=== PATIENT | male | born 1955 | race Caucasian/White ===

== ENCOUNTER 2017-02-28 00:14 | Day surgery (SDC) | payer OTHER ==
[~2017-02-28 00:14] MED LIST: APIX5TAB PO; METO50TA3 PO; OMEP20TA24 PO; PRED1DRO OD
[2017-02-28] MEDS ORDERED: Lactated Ringer's 1,000 ML IV SCH (05:00)
[2017-02-28] MEDS ORDERED: Benzoc-Butamben-Tetraca Spray 20 Gm Spray TOPICAL ONE (06:00)
[2017-02-28] MEDS ORDERED: Vancomycin Inj 1,000 MG in IV Premix 1 EACH IV ONE (07:15)
[2017-02-28] MEDS ORDERED: 0.9% Sodium Chloride 1,000 ML IV SCH (07:16)
== END 2017-02-28 23:59 | disposition home or self-care (01) ==
LOC: SOUO 00:14
PROVIDERS: ATTEND Internal Medicine Cardiovascular Disease
DX: I48.0 Paroxysmal atrial fibrillation (principal)

== ENCOUNTER 2017-05-23 01:31 | Day surgery (SDC) | payer OTHER ==
[~2017-05-23] VITALS: Ht 177.8 cm; Wt 131.4 kg
[2017-05-23] VITALS (16 sets, daily range): BP systolic 109–133; BP diastolic 67–84; PULSE 56–77; RESP 12–26; O2SAT 94–97
[~2017-05-23 01:31] MED LIST changes: +Lactated Ringer's 1,000 ML IV SCH; +PRED1DRO BOTH_EYES; -PRED1DRO OD
[2017-05-23] MEDS ORDERED: fentaNYL-PF 50 mCg/mL 2 mL Inj ONE (01:32)
[2017-05-23] MEDS ORDERED: Lidocaine 2% 5 mL Topical Jelly ONE (01:32)
[2017-05-23] MEDS ORDERED: EPHEDrine/NS 5 mg/mL 5 mL Syringe ONE (01:32)
[2017-05-23] MEDS ORDERED: Rocuronium 10 mg/mL 5 mL Inj ONE (01:32)
[2017-05-23] MEDS ORDERED: Protamine Sulfate 10 mg/mL 5 mL Inj ONE ×3 (01:32→12:38)
[2017-05-23] MEDS ORDERED: Propofol 10,000 mCg/mL 20 mL Inj ONE (01:32)
[2017-05-23] MEDS ORDERED: Lactated Ringer's 1,000 ML IV SCH ×2 (05:00→08:00)
[2017-05-23] MEDS ORDERED: Benzoc-Butamben-Tetraca Spray 20 Gm Spray TOPICAL PRN (06:15)
[2017-05-23] MEDS ORDERED: Vancomycin 1,000 mg/200 mL NS IV SCH (06:15)
[2017-05-23] MEDS ORDERED: Heparin 1,000 Unit/mL 10 mL Inj ONE ×3 (06:42→11:12)
[2017-05-23] MEDS ORDERED: Heparin 25,000 Unit/500 mL 0.45% NS Premix IV ONE (06:42)
[2017-05-23] MEDS ORDERED: RIVA20TA PO (06:55)
[2017-05-23 06:58] LABS: BASOPHILS % (AUTO) 0.2 % (0-3); EOSINOPHILS % (AUTO) 6.1 % (0-5); Mean Corpuscular Hemoglobin 32.7 pg (27.0-35.0); Mean Corpuscular Volume 96.4 fL (81-100); NEUTROPHILS % (AUTO) 52.9 % (40-74); Platelet Count 232 bil/L (150-400)
--- NOTE | 2017-05-23 07:14 | PCM.HPANE ---
Patient Data Surgeon Admitting Provider: Attending Provider:Blayne Murcia MD Primary Care Physician:Estiven Worthington MD Other Provider:Naila Porteringham Anesthesia Reason for Visit Paroxysmal Atrial Fibrillation Ht/WT & BMI Height (Feet): 5 Height (Inches): 10.00 Weight (Kilograms): 136.900 Body Mass Index 43.21 Allergies Coded Allergies: No Known Drug Allergies (Verified Allergy, Unknown, 09/08/15) Past Anesthesia History Anesthesia History: Denies:: Anesthesia Reactions, Fam Anesthesia Reaction, Fam Malignant Hypertherm, Malignant Hyperthermia Diabetes History Hx Diabetes?: No MRSA MRSA: No Medications Blood Thinner: Aspirin Reported Medications Rivaroxaban (Xarelto)20 Mg [id number] Mg PO DAILY 05/23/17 Prednisolone Acetate (Pred Forte)1 Ml Drops.susp1 Gtt BOTH_EYES weekly/tuesdays02/27/17 Metoprolol Tartrate 50 Mg Vnzuug16 Mg PO BID 30 Days Ref 0 02/27/17 Discontinued Reported Medications Omeprazole Magnesium (Prilosec Otc)20 Mg Tablet.dr20 Mg PO DAILY #1 PKG Ref 0 02/27/17 Apixaban (Eliquis)5 Mg Tablet5 Mg PO BID 02/27/17 History History of ENT Problems?: Yes HEENT History: Positive for:: Cataracts (S/P EXTRACTION & FUCH'S DYSTROPHY CORRECTION X2) Denture Type: None Teeth Condition: Within Normal Limits Hx of Heart Problems?: Yes Cardiovascular History: Positive for:: Hypertension Irregular Heartbeat (atrial fibrillation) Denies:: Cardiac Surgery Hx of Respiratory Problem?: No Respiratory History: Denies:: Use of C-PAP Machine Hx Neurologic Problems?: No Neurological History: Denies:: CVA Hx of GI Problems?: Yes Hx of Problems?: No Male Hx: Denies:: Prostate Problems Scrotal Mass Testicular Surgery (HYPOGONADISM) Skin History: Denies:: History Skin Disorders? Pressure Ulcers Hx Musculoskeletal Problems?: Yes Musculoskeletal History: Positive for:: Back Injury (2 back surgeries, electric nerve stimulator implant) Musculoskeletal Trauma (S/P RT SHOULDER RPR) Hx of Psycho/Social Problems?: Yes Psycho Social History: Positive for:: Hx Depression Denies:: Anxiety Hx Surgeries?: Yes (back, eye, shoulder) Hx Any Other Health Problems?: Yes Other History: Denies:: Cancer Endocrine Disease Hospitalization Thyroid Disease History Blood Transfusions: Positive for:: Accept Blood Products? Denies:: Blood Transfusions Hx Diabetes: No Hx Alcohol Use: Yes (1-2 drinks weekly)Hx Substance Use: No Smoking Status: Never Smoker Have You Smoked inLast 12 mo: Yes Stop/Bang Risk Assessment Category Category 1A: Patient has history of documented sleep apnea, and HAS NOT received any narcotic, sedative or anesthesia administration during this stay. Category 1B: Patient has history of documented sleep apnea, and HAS received any narcotic , sedative or anesthesia administration during this stay Category 2: Patient has SUSPECTED Obstructive Sleep Apnea, and HAS received any narcotic , sedative or anesthesia administration during this stay. Category 3: Patient has SUSPECTED Obstructive Sleep Apnea and HAS NOT received narcotic, sedative or anesthesia administration during this stay. Category 4: Outpatient in Procedural Areas with known sleep apnea or who screen positive for High Risk via the STOP/BANG questionnaire. Exam Exam Vital Signs Vital Signs Date Time Temp Pulse Resp B/P Pulse Ox O2 Delivery O2 Flow Rate FiO2 05/23/17 06:53 56 18 128/74 05/23/17 06:41 36.6 56 18 128/74 95 Room Air General Appearance: Alert, Oriented X3, Cooperative, No Acute Distress HEENT/AIRWAY: MP 2, Neck Movement (THICK, 50% expected ROM, SINHA), Mouth Opening (wnl) Lungs: Clear to Auscultation, Normal Air Movement Meds/Labs/Diagnostics Labs Test 05/23/17 06:30 White Blood Count 4.9th/mm3 (3.8-10.1) Red Blood Count 4.40mil/mm3 (4.40-5.80) Hemoglobin 14.4g/dL (13.8-17.2) Hematocrit 42.4% (41.0-50.0) Mean Corpuscular Volume 96.4fL (81-100) Mean Corpuscular Hemoglobin 32.7pg (27.0-35.0) Mean Corpuscular Hemoglobin Concent 34.0% (32.0-37.0) Red Cell Distribution Width 11.8% (12.3-15.4) Platelet Count 232bil/L (150-400) Neutrophils (%) (Auto) 52.9% (40-74) Lymphocytes (%) (Auto) 31.6% (14-46) Monocytes (%) (Auto) 9.0% (4-12) Eosinophils (%) (Auto) 6.1% (0-5) Basophils (%) (Auto) 0.2% (0-3) Plan Impression Patient chart reviewed, patient interviewed and anesthestic plan with risks, benefits, and alternatives discussed, and informed consent obtained. ASA Physical Status: ASA3 Severe Disease Anesthetic Support Modalities: [place] Scope Anesthetic Plan: GA Bene/Risks/Altern/Consents: Yes HP Complete Prior to Induction: Yes Tonny Enriquez MD May 23, 2017 07:14
[2017-05-23] MEDS ORDERED: Heparin 1,000 Units/500 mL NS Premix IV ONE (07:52)
[2017-05-23] MEDS ORDERED: Lactated Ringer's 500 ML IV PRN (08:00)
[2017-05-23] MEDS ORDERED: Dexamethasone 4 mg/mL Inj IVPUSH PRN (08:00)
[2017-05-23] MEDS ORDERED: EPHEDrine Sulfate 50 mg/mL Inj IVPUSH PRN (08:00)
[2017-05-23] MEDS ORDERED: Phenylephrine 10,000 mCg/mL Inj IVPUSH PRN (08:00)
[2017-05-23] MEDS ORDERED: Atropine 0.4 mg/mL Inj IVPUSH PRN (08:00)
[2017-05-23] MEDS ORDERED: fentaNYL-PF 50 mCg/mL 2 mL Inj IVPUSH PRN (08:00)
[2017-05-23] MEDS ORDERED: Labetalol 5 mg/mL 4 mL Inj IV PRN (08:00)
[2017-05-23] MEDS ORDERED: hydrALAZINE 20 mg/mL Inj IVPUSH PRN (08:00)
[2017-05-23] MEDS ORDERED: Ondansetron 2 mg/mL 2 mL Inj IVPUSH PRN (08:00)
[2017-05-23] MEDS ORDERED: HYDROmorphone 1 mg/mL Inj IVPUSH PRN (08:00)
[2017-05-23] MEDS ORDERED: Heparin 10,000 Unit/1,000 mL NS Premix IV ONE (09:08)
--- NOTE | 2017-05-23 13:13 | PCM.ANEP1 ---
Post Anesthesia PACU Phase 1 Assessment Vital Signs Vital Signs Date Time Temp Pulse Resp B/P Pulse Ox O2 Delivery O2 Flow Rate FiO2 05/23/17 06:53 56 18 128/74 05/23/17 06:41 36.6 56 18 128/74 95 Room Air Anesthetic Administered: GA Level of Alertness: Awake, talking CHINCHILLA's with Equal Strength: Yes Pain: No Nausea or Vomiting: No CV Function & Hydration Stable: Yes Airway Device: Oxygen Delivery: Room Air Lungs: Normal Air Movement PACU Phase 2 Assessment Complications: No Follow up Care: No Patient Instructions Provided: N/A Tonny Enriquez MD May 23, 2017 13:13
--- NOTE | 2017-05-23 13:30 | NUR ---
Right radial arterial line removed without incidence.Pressure held x 7 minutes.Bandaid applied.
--- NOTE | 2017-05-23 14:03 | PROCED ---
[address] [address] PROCEDURE NOTE PATIENT: CHRISTO BILL : 1955 MR#: [id number] ADMIT: 05/23/2017 JOB ID: [id number] DATE OF SERVICE: 05/23/2017 PREOPERATIVE DIAGNOSIS(ES): Paroxysmal drug-refractory atrial fibrillation. POSTOPERATIVE DIAGNOSIS(ES): Paroxysmal drug-refractory atrial fibrillation. PROCEDURES PERFORMED: 1. Comprehensive electrophysiology study with left atrial pacing and recording. 2. Three-dimensional electroanatomical mapping using the CARTO 3 system. 3. Intracardiac echocardiography. 4. Transseptal puncture x2. 5. Atrial fibrillation ablation with pulmonary vein isolation. 6. Barium esophagram. 7. Fluoroscopy. SURGEON: Blayne Murcia MD, electrophysiology attending. ASSISTANTS: Dawood Patel PA-C, Bing Inman. ANESTHESIA: General endotracheal anesthesia was undertaken for this case. INDICATION: The patient is a pleasant 61-year-old man with preserved LV function and highly symptomatic recurrent drug-refractory atrial fibrillation. After discussion of risks and benefits of catheter-based mapping and ablation, he opted to proceed. PROCEDURAL DESCRIPTION: Following informed signed consent, the patient was taken to the EP laboratory in a fasting, nonsedated state, where he was prepped and draped in the usual sterile fashion. He underwent a preprocedural transesophageal echocardiogram by Dr. Hillman confirming lack of intracardiac thrombus. Please see separate dictated report for the details of that procedure. The bilateral groins were infiltrated with 1% lidocaine. Then, using modified Seldinger technique, two 8-Wolof sheaths were inserted into the right femoral vein, and a 7 and a 10.5-Wolof sheaths were inserted into the left femoral vein. Under fluoroscopic guidance, a deflectable decapolar catheter was advanced to the coronary sinus with the most proximal bipoles at the os of the sinus. An intracardiac echocardiography probe was advanced to the RV outflow tract and used to visualize the pericardial space. No effusion was noted. The ICE probe has pulled back into the right atrium and used to visualize the interatrial septum in anticipation of transseptal puncture. Two transseptal punctures were performed in an identical fashion. Each of the short 8-Wolof sheaths were exchanged over a long wire for a Zarco sheath dilator and Cora Brockenbrough needle. The entire system was used to engage the interatrial septum. Then, under fluoroscopic, ICE and pressure guidance, the septum was traversed twice to deploy the two Zarco sheaths into the left atrium. The patient was heparinized for a goal ACT of 350 to 400 seconds for the entire time we were in the left atrium following the first and preceding with second transseptal puncture. A resurvey of the pericardial space showed no evidence of effusion. Through the two Zarco sheaths, an F curve SmartTouch irrigated ablation catheter was passed, as was a 20-pole PentaRay catheter, and a three-dimensional electroanatomical mapping of the left atrium and pulmonary veins was created using the CARTO 3 system. The left pulmonary veins had a common ostium with late bifurcation. There were three right-sided pulmonary veins with a right middle that was quite small and encompassed with the right lower pulmonary vein. A barium esophagram was performed and was closest to the posterior aspect of the left common pulmonary vein. Ablation lesions were then placed around the ostia of the left common pulmonary vein, right upper and right lower pulmonary veins in that order. Entrance and exit block was confirmed. Low-wattage, short-duration casillas were placed along the posterior aspect of the left common pulmonary vein while monitoring both the position by barium esophagram and the temperature within esophagus. After entrance and exit block was confirmed in the pulmonary veins, we disengaged from the left atrium, turned off the heparin and reversed the patient's heparin with protamine. A re-survey of the pericardial space showed no evidence of effusion. Once the heparin was reversed, the catheter sheaths were removed. Manual pressure was held for hemostasis. During the course of this study we did complete a comprehensive electrophysiology study with right atrial pacing recording, right ventricular pacing recording, His bundle recording and left atrial pacing recording. The patient was transferred to the [facility] for monitoring and bedrest. COMPLICATIONS: None. ESTIMATED BLOOD LOSS: 20 cc. FINDINGS: 1. Baseline rhythm is sinus with an RR interval of 962 msec, AK 149 msec, QRS 90 msec, QT 415 msec. 2. Intracardiac intervals: AH interval 65 msec, HV 52 msec. 3. Retrograde conduction: Concentric atrial activation. VA Wenckebach is seen at 520 msec. 4. Atrial fibrillation ablation with pulmonary vein isolation as described above with entrance and exit block. IMPRESSION: Successful pulmonary vein isolation procedure for paroxysmal drug-refractory atrial fibrillation. PLAN: 1. Bedrest x4 hours. 2. Continue anticoagulation with resumption once the patient wake. 3. Continue beta blockade and add flecainide 50 mg twice daily for the first three months. 4. Protonix 40 mg p.o. daily x1 month. 5. Follow up with Dawood Patel PA-C in four weeks and with me in three months. ATTENDING STATEMENT: Blayne Murcia MD, electrophysiology attending, was present for and supervised/performed all aspects of this procedure.
--- NOTE | 2017-05-23 16:55 | NUR ---
pt recieved/xaralto pt received see assessment. bilat groin sites clean dry intact no hematoma, bilat pedal pulses palpable. Per report xaralto was given post op.
--- NOTE | 2017-05-23 19:17 | NUR ---
Orthos Standin/94; 71 pulse Sittin/94; 73 pulse Layin/90; 66 pulse
[2017-05-24 03:04] VITALS: BP 105/66; PULSE 66; RESP 18; O2SAT 95
[2017-05-24] MEDS ORDERED: Pantoprazole 40 mg ER24 Tablet PO SCH (06:30)
[2017-05-24 08:00] VITALS: PULSE 73
--- NOTE | 2017-05-24 08:05 | NUR ---
Shift note/pain A/O, groin sites c/d/i. Resting comfortably, with the exception of stated throat pain 03/31 and possible indication r/t feeling sensation of URI coming on. (Cecilio) paged @ [phone], requested Lozenges and Tylenol. VSS. Tele: SR 60's to 70's. Report given to oncoming RN.
[2017-05-24 08:11] VITALS: BP 103/63; PULSE 75; RESP 19; O2SAT 95
--- NOTE | 2017-05-24 08:34 | PCM.DIMED ---
Discharge Instructions Date of Service May 24, 2017 Dates of Hospitalization Discharge Diagnosis Discharge Diagnosis Atrial Fibrillation Hypertension Diet Discharge Diet: Heart Healthy Activity Discharge Activity: Other (To prevent bleeding, do not lift, push or pull more than 10 lbs for one week. To prevent infection, do not sit in a bath tub, hot tub or pool for one week.) Call your provider Call your provider for: Fever or Chills, Bleeding, Chest pain, Excessive diarrhea, Weakness (unilateral) Patient Instructions Provider: Blayne Murcia MD Follow-up in: Other (3 months: 2016 at 11:00 (10:40 arrival time) at [facility] Cardiology) Mid-level Provider (F9): Dawood Patel PA-C Follow-up with Mid-level in: 4 weeks (Appt. on 06-22-17 at 1:00 (12:40 arrival time) at [facility] Cardiology) Dawood Patel PA-C May 24, 2017 08:34
[2017-05-24] MEDS ORDERED: FLC50T PO (08:44)
[2017-05-24] MEDS ORDERED: PANT40TA3 PO (08:44)
--- NOTE | 2017-05-24 09:14 | DIS ---
[address] [address] DISCHARGE SUMMARY PATIENT: CHRISTO BILL : 1955 MR#: [id number] ADMIT: 05/23/2017 JOB ID: [id number] DIS: 05/24/2017 REASON FOR ADMISSION: Atrial fibrillation and ablation procedure. CHIEF COMPLAINT: Paroxysmal palpitations with dyspnea and fatigue. BRIEF HISTORY: The patient is a pleasant 61-year-old man with a structurally normal heart who has been dealing with symptomatic paroxysmal atrial fibrillation for eight years. When in the arrhythmia, he has symptoms of shortness of breath and fatigue and the episodes usually persistent for hours on end. He and Dr. Murcia discussed the ablation procedure and he was admitted for that. COURSE IN HOSPITAL: The patient was admitted to the [facility] and taken to the labor custodian, where he was placed under general anesthesia by the anesthesiologist. He then had a ZINA which showed no left atrial thrombus. The ablation procedure was then undertaken and completed without incident. Afterward the right and left femoral venous sheaths were removed, hemostasis was obtained and he was awakened from anesthesia. The patient was transferred back to the [facility] for further recovery before being sent up to the [facility] for overnight telemetry and observation. He did well overnight and in the morning was ambulatory without difficulty, the Scott catheter had been removed and he was able to urinate. He was not having pain and there had been no bleeding or hematoma. EKG in the morning showed normal sinus rhythm at 72 BPM with normal intervals. He felt well for discharge home and denied any chest pain or lightheadedness. DISPOSITION: The patient was discharged home in good condition with a follow up appointment at the [facility] Cardiology office in one month. He was asked not to lift, push or pull more than 10 pounds for one week to prevent bleeding and to prevent infection. He was asked not to sit in a hot tub, bathtub or pool for one week. He will take medications as prescribed and follow his heart healthy diet. DISCHARGE MEDICATIONS: 1. Flecainide 50 mg b.i.d. 2. Pantoprazole 40 mg daily for 1 month only. 3. Metoprolol tartrate 50 mg b.i.d. 4. Prednisone eyedrops 1 drop both eyes each week. 5. Rivaroxaban 20 mg daily. FINAL DIAGNOSES: 1. Paroxysmal, symptomatic atrial fibrillation. 2. Dyslipidemia.
--- NOTE | 2017-05-24 11:23 | DRSVH ---
[facility] [address] [place] [address] Echocardiogram Report Name: CHRISTO BILL RStudy Date: 05/23/2017 Height: 70 in Hospital Exam Location: [facility] Weight: 302 lb Gender: Male BSA: 2.5 m2 : 1955 Age: 61 yrs BP: 130/74 mmHg Reason For Study: Atrial Fibrillation Ordering Physician: Performed By: Ada Solis Referring Physician: CHIARA CAMP Interpretation Summary Sinus bradycardia Normal LV size; normal wall thickness; mild global hypokinesis. EF is about 45-50% based on available limited views. No significant valvular abnormalities. No DELLA thrombus Procedure: The patient was brought to the cardiac catheterization lab in a fasting state. Sedation was managed by anesthesiologist; see anesthesiology notes for details. A multifrequency, multiplane transesopheageal echocardiographic endoscope was inserted and manipulated in the standard fashion to achieve multiplane views. The patient was in normal sinus rhythm during the exam. There were no complications. Atria: No thrombus is detected in the left atrial appendage. The interatrial septum is intact with no evidence for an atrial septal defect. Mitral Valve: The mitral valve is normal in structure and function. There is mild mitral regurgitation. Aortic Valve: The aortic valve is trileaflet. The aortic valve opens well. No aortic regurgitation is present. Tricuspid Valve: The tricuspid valve is normal in structure and function. There is trace tricuspid regurgitation. Pulmonic Valve: The pulmonic valve is normal in structure and function. There is a trace or physiologic amount of pulmonic regurgitation. Reading Physician:11:23 AM
--- NOTE | 2017-05-24 11:48 | NUR ---
Discharge Patient was discharged home in stable condition. Right and left groin sides post cardiology procedure yesterday remained stable and WNL. Patient complained of mild t moderate through soreness/irritation. No elevated tem this morning. Discomfort was possible related to ZINA procedure yesterday. Medications were offered to help with discomfort patient declined. Patient and his verbalized understanding of verbal and written discharge home instructions regarding home medications, follow up appointments, activity restriction, diet, S/S to report to the doctor and when t call 911. IV were removes dX2 prior to discharge. Patient declined a wheelchair as means of transport to his 's car. He decided to walk instead and was accompanied by his and staff to his 's car.
[2017-05-29] MEDS ORDERED: PrednisoLONE 1% 5 mL Ophthalmic Suspension BOTH_EYES SCH (08:30)
== END 2017-05-24 11:15 | disposition home or self-care (01) ==
LOC: SOUO 01:31 → PCC 15:44 → SOUO 05-24 11:15
PROVIDERS: ATTEND Internal Medicine Cardiovascular Disease
DX: I48.0 Paroxysmal atrial fibrillation (principal); I10 Essential (primary) hypertension; Z79.01 Long term (current) use of anticoagulants; Z79.899 Other long term (current) drug therapy; E78.5 Hyperlipidemia, unspecified
CPT/HCPCS: 36415; 80048; 85025; 85610; 93005; 93613; 93656; 93662; C1730; C1732; C1759; C1769; C1894; C8925; J1644; J2250; J2720; J3010